=== PATIENT | female | born 1955 | race Caucasian/White ===

== ENCOUNTER → 2021-05-16 | Day surgery (SDC) | payer MEDICARE, OTHER ==
[~2021-05-16] MED LIST: CITA40TA5 PO; IPRATRPIUM/ALBUTEROL 0.5/2.5MG 3 ML NEBU. NEB PRN; IV RINGERS SOLUTION,LACTATED 1,000 ML IV SCH; LEVO50CA3 PO; LIDOCAINE 2% PF 5 ML VIAL. ONE; MIDAZOLAM HCL PF 2 MG/2 ML VIAL. IV ONE; OMEP20TA8 PO; PROPOFOL 10,000 MCG/ML (20ML) VIAL IV ONE
[2021-05-16 10:11] VITALS: BP 132/80
--- NOTE | 2021-05-18 14:07 | PATHOLOGY ---
[facility] Accession Number: [id number] . 01 Material submitted: . PART A: esophagus - ESOPHAGEAL 34 CM COOK'S. Modifiers: 34 CM PART B: esophagus - ESOPHAGEAL 32 CM COOK'S. Modifiers: 32 CM PART C: esophagus - ESOPHAGEAL 30 CM COOK'S. Modifiers: 30 CM PART D: esophagus - ESOPHAGEAL 29 CM COOK'S. Modifiers: 29 CM PART E: colon - ASCENDING COLON POLYP COLD SNARE BIOPSY. Modifiers: ascending . 01 Clinical history: . EGD/COLON . 01 Frozen section diagnosis: . . /QTP . 02 Diagnosis: A. Esophageal biopsies, 34 cm: - Segment of columnar-lined mucosa showing mild chronic inflammation and focal intestinal metaplasia with goblet cells consistent with Cook's change. - Segment of gastric mucosa showing mild chronic inflammation and focal pancreatic metaplasia. . B. Esophageal biopsies, 32 cm: - Segment of columnar-lined mucosa showing mild chronic inflammation and intestinal metaplasia with goblet cells consistent with Cook's change. - Segment of gastric mucosa showing mild chronic inflammation. . C. Esophageal biopsies, 30 cm: - Multiple segments of columnar-lined mucosa showing focal mild chronic inflammation and extensive intestinal metaplasia with goblet cells consistent with Cook's change. . D. Esophageal biopsies, 29 cm: - Multiple segments of columnar-lined mucosa showing mild chronic inflammation and extensive intestinal metaplasia with goblet cells consistent with Cook's change. . E. Colon biopsy, ascending colon polyp: - Prominent mucosal fold, with mucosal-associated lymphoid aggregate. . (JPM:primo; 05/17/2021) R 05/18/2021 0845 Local . 02 Comment: There is Cook's change identified within the esophageal biopsies at 34 cm, 32 cm, 30 cm and 29 cm, and is most extensive in the biopsies at 30 cm and 29 cm. Small islands of squamous esophageal mucosa are identified in the biopsies at 30 cm and 29 cm. There is no dysplasia or evidence of malignancy. . Sections of the ascending colon biopsy reveal a segment of colonic mucosa containing a mucosal- associated lymphoid aggregate, consistent with a prominent mucosal fold. There are no adenomatous changes or evidence of malignancy. . (JPM:legal cashier/pit; 05/17/2021) . 02 Electronically signed: . Anmol Mclaughlin MD, Pathologist NPI- [id number] . 01 Gross description: . A. The specimen is received in formalin, labeled "Captiva, Esperanza J and esophageal 34 cm Cook's". It consists of 2 mackey irregular soft tissue fragments measuring 0.3 and 0.4 cm. The specimen is entirely submitted between sponges in A1. . B. The specimen is received in formalin, labeled "Rach, Esperanza J and esophageal 32 cm Cook's". It consists of 3 mackey irregular soft tissue fragments ranging from 0.2-0.3 cm in greatest dimension. The specimen is entirely submitted between sponges in B1. . . C. The specimen is received in formalin, labeled "Captiva, Esperanza J and esophageal 30 cm Cook's". It consists of 2 mackey irregular soft tissue fragments measuring 0.5 and 0.6 cm. The specimen is entirely submitted between sponges in C1. . . D. The specimen is received in formalin, labeled "Captiva, Esperanza J and esophageal BX 29 cm Coko's". It consists of multiple mackey irregular soft tissue fragments measuring 0.5 x 0.4 x 0.1 cm in aggregate. The specimen is entirely submitted between sponges in D1. . E. The specimen is received in formalin, labeled "Rach, Esperanza J and ascending colon cold snare BX". It consists of a mackey polypoid soft tissue fragment measuring 0.5 x 0.3 x 0.1 cm. The specimen is entirely submitted between sponges in E1. (MRF; 05/16/2021) MFE/MFE 05/17/2021 1611 Local . 02 Pathologist provided ICD-10: K20.80, K29.50 . 02 CPT . 387635, 281983, 287218, [id number], [id number] Specimen Comment: A courtesy copy of this report has been sent to [phone] Specimen Comment: [id number] Specimen Comment: Report sent to / DR HAQUE Performed at: [address] [id number] MD Gabe Porter MD Phone: [phone] [facility]formed [facility]: [facility] [address] [place], [place] [id number] MD Anmol Mclaughlin MD Phone: [phone]
== END ==
LOC: SURG 08:36
PROVIDERS: ATTEND Internal Medicine Gastroenterology
DX: Z12.11 Encounter for screening for malignant neoplasm of colon (principal); K21.00 Gastro-esophageal reflux disease with esophagitis, without bleeding; K63.5 Polyp of colon; K44.9 Diaphragmatic hernia without obstruction or gangrene; K57.30 Diverticulosis of large intestine without perforation or abscess without bleeding; K64.4 Residual hemorrhoidal skin tags; K64.8 Other hemorrhoids; Z86.010 Personal history of colon polyps; Z79.899 Other long term (current) drug therapy; Z88.8 Allergy status to other drugs, medicaments and biological substances; Z98.890 Other specified postprocedural states
CPT/HCPCS: 43239; 45385; J2001; J2704; J7120; 45380; 88305

== ENCOUNTER → 2021-06-15 | Outpatient (CLI) | payer MEDICARE, OTHER ==
[2021-05-16 10:11] VITALS: BP 132/80
[~2021-06-15] MED LIST changes: -IPRATRPIUM/ALBUTEROL 0.5/2.5MG 3 ML NEBU. NEB PRN; -IV RINGERS SOLUTION,LACTATED 1,000 ML IV SCH; -LIDOCAINE 2% PF 5 ML VIAL. ONE; -MIDAZOLAM HCL PF 2 MG/2 ML VIAL. IV ONE; -PROPOFOL 10,000 MCG/ML (20ML) VIAL IV ONE
--- NOTE | 2021-06-15 16:59 | RAD ---
INDICATION: Screening for osteopenia/osteoporosis. Postmenopausal evaluation COMPARISON: None. TECHNIQUE: Bone densitometry was performed through the lumbar spine and proximal femur. IMPRESSION: Lumbar Spine: BMD: 0.98 T-Score: -1.7 Range: Osteopenic Proximal Femur: BMD: 0.89 T-Score: -0.5 Range: Normal World Health Organization Criteria for Bone Density: T-Score: > -1.0: Normal Range < -1.0 to -2.5: Osteopenic Range < -2.5: Osteoporotic Range Electronically signed by: Ramesh Mackay MD (06/15/2021 4:56 PM) [id number]
--- NOTE | 2021-06-16 10:43 | RAD ---
INDICATION: 65 years of age asymptomatic female patient presents for screening mammography. TECHNIQUE: Full field craniocaudal and mediolateral oblique images of both breasts were obtained usi ng digital technique with tomosynthesis and also analyzed with computer-aided detection software. COMPARISON: No prior imaging is available for comparison BREAST COMPOSITION: Category B: There are scattered fibroglandular densities. FINDINGS: Benign calcifications are present. The parenchymal pattern appears stable. No suspicious masses, microcalcifications or architectural distortion is present to suggest malignanc y in either breast. The visualized axillae are unremarkable. IMPRESSION: No mammographic evidence of malignancy. RECOMMENDATION: Annual screening mammography is recommended, unless clinically indicated sooner based on symptoms or change in physical exam. BIRADS 2: BENIGN This study was interpreted with the benefit of Computerized Aided Detection (CAD). Patient information is entered into the reminder system with a target due date for the next screening mammogram. Mammography is the most sensitive method for finding small breast cancers, but it does not detect the m all and is not a substitute for careful clinical examination. A negative mammogram does not negate a clinically suspicious finding and should not result in delay in biopsying a clinically suspicious a bnormality. "Our facility is accredited by the [employer] Mammography Program." Electronically signed by: Ez Hoff MD (06/16/2021 10:41 AM) [facility]
== END ==
LOC: MAMMO 14:14
PROVIDERS: ATTEND Family Medicine
DX: Z12.31 Encounter for screening mammogram for malignant neoplasm of breast (principal); M85.88 Other specified disorders of bone density and structure, other site
CPT/HCPCS: 77063; 77067; 77080